=== PATIENT | male | born 1970 | race Caucasian/White ===

== ENCOUNTER 2021-08-28 06:48 | Outpatient (CLI) | payer OTHER, SELFPAY ==
--- NOTE | ~2021-08-28 | CT_ITS ---
EXAMINATION: CT abdomen pelvis wo/w con EXAM DATE: 08/28/2021 07:33 INDICATION: Gross hematuria. TECHNIQUE: Spiral CT of the abdomen and pelvis was performed without contrast. The patient was then injected with small bolus intravenous Omnipaque 350, followed by delay of approximately 10 minutes to allow collecting system to opacify. A post contrast scan abdomen and pelvis was performed during inj ection of remaining contrast. A total of 130 cc intravenous contrast was administered. The dose-rafiq th product (DLP) for this examination was 525.70 mGy-cm. The exposure was tailored according to ankit ent size (auto mA exposure control), and iterative reconstruction (ASIR) was used as additional dose reduction technique. There is no prior study for comparison. FINDINGS: There is no hydronephrosis or nephrolithiasis. The kidneys enhance symmetrically. There a re no suspicious renal lesions. The calyces and opacified portions of ureters are unremarkable, with out filling defects or focal suspicious strictures. Mild bladder wall trabeculation without thickeni ng. The prostate is unremarkable. The liver, spleen, adrenal glands and pancreas are unremarkable. Gallbladder is unremarkable. No bi liary obstruction. There is no retroperitoneal or pelvic lymphadenopathy. The appendix is normal. No small bowel dilation. There is a 3 cm duodenal diverticulum. There is ex pected amount of colonic stool. No free intraperitoneal gas. The heart is normal in size. There are no pericardial or pleural effusions. The lung bases are unremarkable. The bones are unremarkabl e. IMPRESSION: 1. No suspicious genitourinary findings. 2. Duodenal diverticulum. Reviewed, dictated and finalized at location B. ION MERCHANDISER
--- NOTE | ~2021-08-28 | XR_ITS ---
EXAMINATION: XR abdomen/kub 1V EXAM DATE: 08/28/2021 07:16 INDICATION: Gross hematuria. TECHNIQUE: Frontal projection(s) of the abdomen for interpretation. Correlation is made to CT urogram same date. FINDINGS: There is expected amount of colonic stool and gas. No small bowel dilation, nonobstructiv e bowel gas pattern. Calcifications in the pelvis are believed to be phleboliths. There is no orga nomegaly suspected. The bones are unremarkable. Lung bases unremarkable. There are no osseous abno rmalities identified. IMPRESSION: Unremarkable abdomen x-ray exam. Reviewed, dictated and finalized at location B. ON COATER MACHINE OPERATOR
== END 2021-08-28 06:49 | disposition home or self-care (01) ==
LOC: ANHIMG 06:52
PROVIDERS: PCP Urology; Visit Provider Urology
DX: R31.0 Gross hematuria (principal); K57.10 Diverticulosis of small intestine without perforation or abscess without bleeding
CPT/HCPCS: 74018; 74178; Q9967

== ENCOUNTER 2021-12-18 11:48 | Outpatient (CLI) | payer OTHER, SELFPAY ==
--- NOTE | 2021-12-18 12:44 | ECG_ITS ---
Measurements Intervals Gays Rate: 76 P: 75 NE: 151 QRS: 11 QRSD: 118 T: 43 QT: 376 QTc: 425 Interpretive Statements SINUS RHYTHM WITH SINUS ARRHYTHMIA INCOMPLETE RIGHT BUNDLE BRANCH BLOCK [90+ ms QRS DURATION, TERMINAL R IN V1/V2, 40+ ms S IN I/aVL/V4/V5/V6] BASELINE ARTIFACT BORDERLINE ECG NO PREVIOUS ECG AVAILABLE FOR COMPARISON Electronically Signed On 12-18-2021 13:32:22 SALES SPECIAL AGENT by Ernesto Calvert M.D.
[2021-12-18 15:42] LABS: Basophils Absolute Auto 0.1 K/mm3 (0.0-0.1); Basophils Percent Auto 1.2 % (0.2-1.2); Eosinophils Absolute Auto 0.3 K/mm3 (0-0.3); Eosinophils Percent Auto 5.4 % (0-4.4); Hematocrit 46.2 % (42.0-52.0); Hemoglobin 16.1 g/dL (14.0-18.0); Immature Granulocyte Absolute 0.01 K/mm3 (0.00-0.031); Immature Granulocyte Percent A 0.2 % (0-0.5); Lymphocytes Absolute Auto 1.78 K/mm3 (0.9-3.2); Lymphocytes Percent Auto 30.8 % (18.3-44.2); Mean Corpuscular HGB Conc 34.8 g/dl (32-36); Mean Corpuscular Hemoglobin 29.4 pg (26-34); Mean Corpuscular Volume 84.5 fl (80-100); Mean Platelet Volume 9.8 fl (7.4-10.4); Monocytes Absolute Auto 0.5 K/mm3 (0.1-0.6); Monocytes Percent Auto 8.3 % (2.6-8.5); Neutrophils Absolute Auto 3.1 K/mm3 (1.3-6.7); Neutrophils Percent Auto 54.1 % (45.5-73.1); Platelet Count Result 306 k/mm3 (150-375); Red Blood Count 5.47 M/mm3 (4.6-6.20); Red Cell Distribution Width 12.5 % (11.5-14.5); White Blood Count 5.8 K/mm3 (4.5-10.0)
[2021-12-18 15:47] LABS: INR 1.1; Prothrombin Time 13.7 Seconds (11.1-14.7)
[2021-12-18 15:48] LABS: Partial Thromboplastin Time 35.7 SECONDS (22.3-36.8)
[2021-12-18 15:49] LABS: Alanine Aminotransferase 14 U/L (4-50); Albumin Level 4.4 g/dL (3.5-5.1); Alkaline Phosphatase 38 U/L (38-126); Anion Gap 7 mmol/L (8-16); Aspartate Amino Transferase 29 U/L (17-59); Bilirubin,Total 0.7 mg/dL (0.2-1.3); Blood Urea Nitrogen 16 mg/dL (9-20); Calcium 8.5 mg/dL (8.4-10.2); Carbon Dioxide 31 mmol/L (22-30); Chloride 102 mmol/L (98-107); Estimated Glomerular Filt Rate > 60; Glucose 88 mg/dL (65-110); Potassium 3.6 mmol/L (3.4-5.0); Sodium 140 mmol/L (137-145)
== END 2021-12-18 11:49 | disposition home or self-care (01) ==
LOC: ANHSURGERY 11:53
PROVIDERS: PCP Family Medicine; Visit Provider Urology
DX: Z01.812 Encounter for preprocedural laboratory examination (principal); C61 Malignant neoplasm of prostate; I49.8 Other specified cardiac arrhythmias; I45.10 Unspecified right bundle-branch block
CPT/HCPCS: 36415; 80053; 85025; 85610; 85730; 86850; 86900; 86901; 87086; 93005

== ENCOUNTER 2021-12-31 00:18 | Day surgery (SDC) | payer OTHER, SELFPAY ==
--- NOTE | 2021-12-18 12:23 | PC.NURSE ---
Report to the Outpatient Waiting Room, entrance under the green pavilion located off [facility], at time 0600 on date __12/31/21 . OR Time: . - You and your visitor will be asked a series of questions to screen for COVID 19 for your protection. - A mask is required within the hospital. Preoperative COVID Testing Requirements: No COVID Test needed if: (proof is required; if not received patient will have Rapid Test prior to entry) - Patient has received COVID Vaccine at least 14 days prior to procedure date or - Patient has positive COVID test result within last 90 days of surgery date. COVID Test needed if above criteria is not met If not COVID vaccinated a COVID test must be conducted within 72 hours of surgery and patient is asked to isolate self from time of testing until procedure. You will go to the [employer] [facility] for your COVID testing. The [employer] [facility] site is located at the corner of [address] [facility]. You will only be called if COVID results are positive and your surgeon may reschedule your elective surgery date. Patients may have clear liquids (water, carbonated beverages, clear teas, apple juice) until 3 hours prior to surgery with a maximum of 20 ounces. - No food from midnight until time of surgery Take the following medications with a SIP of water the morning of surgery: ___NONE Medications to discontinue per physician ____NONE Date to take last dose Please no make-up, nail persian, hairspray, perfume, deodorant, or body powder the day of surgery. No jewelry (including any body piercings) or valuables the day of surgery, leave them at home. Please take a shower or bath the night before, or the morning of, surgery with an antibacterial soap. Wear comfortable, loose fitting clothing. Children are encouraged to wear pajamas. - Jewelry must be removed prior to entering the operating room. Rings and piercings that are not removed may be cut off. - The hospital will not accept responsibility for valuables. - Please leave all valuables, including medications, at home the day of surgery. If you are going home after surgery, a licensed p d driver must drive you home. - NO public transportation without another adult. - We recommend that an adult stay with you for 24 hours following discharge. - We also recommend that you do not drive, make important decision, drink alcoholic beverages, or take any drugs that were not prescribed by your health care provider for at least 24 hours after your discharge time. One visitor will be allowed to accompany the patient into the hospital. Patients visitor will be instructed to remain with patient at all times or leave the building. We will allow the visitor to come back to the postoperative area when patient is ready. Follow any additional instructions given to you from your surgeon. VERBAL AND WRITTEN instructions given to __PATIENT and asked if any additional questions and then verbalized understanding. Patient advised to call surgeon office or pre surgery nurse liaison [phone] if any additional questions.
[2021-12-18 12:43] VITALS: BP 144/75; PULSE 79; RESP 18; TEMP 37.1; O2SAT 100; BMI 19.7
--- NOTE | 2021-12-30 13:42 | WPDANESEPPF ---
Anes - Initial Pre Proc Eval Procedure: Operation Date: 12/31/21 07:30 Proposed Procedures p Robotic Assisted Laparoscopic Nerve Sparing Prostatectomy with Possible Pelvic Lymph Node Dissection - Jose J Meyer MD Date/Time: 12/30/21 13:42 Surgeon: Jose J Meyer MD Pre Op Diagnosis: prostate cancer Patient Data Age: 51 Gender: M Height: 1.75 m Weight: 60.5 kg Last Vital Signs Temp 98.8 F 12/18/21 12:43 Pulse 79 12/18/21 12:43 Resp 18 12/18/21 12:43 BP 144/75 H 12/18/21 12:43 Pulse Ox 100 12/18/21 12:43 Allergies Allergy/AdvReac Type Severity Reaction Status Date / Time iodine Allergy Unknown Rash Verified 12/31/21 07:02 Home Medications Medication Instructions Recorded Confirmed Type acetaminophen [Tylenol] 325 mg PO PRN PRN 12/18/21 12/18/21 History Patient hx anesthesia problems: post op nausea/vomiting Family hx anesthesia problems: none Results Review: All pre-operative results and documents have been reviewed as part of the pre-operative evaluation. [facility] Past Medical History Medical History (Updated 12/30/21 @ 13:42 by Tyler Bailey MD) Prostate cancer Social History Social History Smoking status: Never smoker Alcohol intake: current Drinks per week: 1 Living arrangements: alone Spiritual care concerns: No Anes - Eval Final PreProcedure Day of Procedure 12/30/21 13:42 Patient weight: normal Heart: regular rate and rhythm Lungs: clear to auscultation Airway: Mallampati scale class II Neurological: alert and oriented Last oral intake: >/= 8 hours ASA classification: II Emergent: no Anesthetic plan: proceed Anesthesia type and monitoring: general ETT and standard monitoring Results Review: All pre-operative results and documents have been reviewed as part of the pre-operative evaluation. Informed Consent: The patient's anesthetic plan and its attendant risks and benefits were discussed with the patient/family/POA. Questions were solicited and answers provided to the satisfaction of the patient/family/POA.
[2021-12-31] VITALS (9 sets, daily range): BP systolic 123–144; BP diastolic 54–81; PULSE 74–101; RESP 12–20; TEMP 36.2–37.1; O2SAT 95–100
--- NOTE | 2021-12-31 07:00 | WPDHPUPDATE1 ---
History and Physical Update Update Date/Time: 12/31/21 07:00 History and Physical has been reviewed, including an updated exam of the patient. There are NO changes in the patient's condition. Risks, benefits, and alternatives have been discussed and questions answered. Patient agrees to proceed with procedure. Proceed with robotic assist nerve sparing prostatectomy with possible pelvic lymph node dissection
[2021-12-31] MEDS: LACTATED RINGERS 1,000 ML 30 ML IV CONT ×2 (07:15→14:00)
[2021-12-31] MEDS: SCOPOLAMINE 1.5 MG PATCH TRANSDERM (07:25)
[2021-12-31] MEDS: ceFAZolin 2 GM/D5W 50 ML 2 GM/50 ML BAG IVPB (07:34)
[2021-12-31] MEDS: BUPIVACAINE HCL 0.5% PF 30 ML VIAL INFILTRATE (08:40)
--- NOTE | 2021-12-31 12:55 | W.PM.PROC2 ---
Procedure Note - Detailed Date of Procedure 12/31/21 Pre-op Diagnosis prostate cancer Post-op Diagnosis Same Procedure Performed Robotic assisted nerve-sparing prostatectomy with right pelvic lymph node dissection. Cut down for initial port placement by Dr. Miles Surgeon Jose J Meyer MD Anesthesia General Description of Procedure Patient was taken to the operative suite and correctly identified. Once anesthesia was obtained he was placed in low-lying dorsal lithotomy position and prepped and draped usual sterile fashion. Eighteen Sammarinese Steinberg was placed in the bladder and inflated with 15 cc of normal saline. All pressure points had been padded. A midline incision supraumbilically was then made and carried down to the rectus fascia. A Veress needle was inserted the abdomen was insufflated to 15 mmHg placement. Dung was extremely thin and I did not feel comfortable placing the camera through a trocar into his abdomen. At that point we decided to have General surgery come in and assist in a cutdown. This was accomplished by Dr. Miles who will dictate that portion of the procedure. The camera port was then placed in the abdomen was insufflated again to 15 mmHg pressure. Working ports were then placed in appropriate locations. Patient was placed in steep Trendelenburg and the robot was docked. A posterior approach was then taken. Seminal vesicles were dissected out in their entirety the vas were transected. Plane between the prostate and rectum was developed. Bladder was taken down standard fashion. Space of Retzius was developed bilaterally. Puboprostatic were transected. 0 Vicryl was placed as a dorsal venous complex suture and then secured to the pubic bone. Anterior bladder neck was then opened. The Steinberg catheter was exposed. Posterior bladder neck was then transected. The the tissue plane was then incised to expose the previously dissected seminal vesicles and vas. Pedicles were taken with clips. Bilateral nerve-sparing was performed. Prostate was lifted off the rectum. Dorsal venous complex was then transected. Urethra was also transected. Specimen was placed in Endo-Catch bag. A right pelvic lymph node dissection was then performed with the boundaries being the external iliac vein, obturator nerve, Newton ligament, bifurcation of the vessels. Clips were placed proximally and distally. Lymph node packet was also placed in an Endo-Catch bag. Surgicel was placed in the obturator fossa and over the neurovascular bundles. A Henri stitch was then performed. The anastomosis of the urethral stump to the bladder neck was performed using V lock suture in a running fashion. There was good a mucosa to mucosa approximation. Sixteen Sammarinese Steinberg was then placed inflated with 10 cc of sterile water. 120 cc of fluid was then injected into the catheter. There is no evidence of extravasation. Catheter was drained. Patient was undocked. Endo-Catch bag was then brought out through the midline incision. Rectus fascia was closed using 0 Vicryl running fashion. Subcuticular sutures were then placed. The incisions were anesthetized with Marcaine. Patient tolerated procedure well without any complications and was taken recovery room stable condition. Estimated Blood Loss 50 Drains Yes Packing No Pathology Yes Complications No immediate complications Condition Stable Disposition PACU
[2021-12-31] MEDS: ONDANSETRON INJ 4 MG/2 ML VIAL IV PUSH (13:43)
[2021-12-31] MEDS: fentaNYL CITRATE INJ (*CRX) 100 MCG/2 ML VIAL 25 MCG IV PUSH (13:47)
[2021-12-31] MEDS: diphenhydrAMINE HCl INJ 50 MG/ML VIAL 6.25 MG IV PUSH (14:05)
[2021-12-31] MEDS: LACTATED RINGERS 1,000 ML 125 ML IV CONT ×2 (15:48→23:12)
[2021-12-31] MEDS: KETOROLAC 30 MG/ML VIAL (*BKC) IV PUSH ×2 (17:13→23:11)
[2022-01-01] MEDS: MORPHINE SULFATE (*CRX) 2 MG/ML INJ 1 MG IV PUSH (02:23)
[2022-01-01 03:46] VITALS: BP 108/51; PULSE 70; RESP 18; TEMP 36.9; O2SAT 96
[2022-01-01 06:05] LABS: Hematocrit 38.3 % (42.0-52.0); Hemoglobin 12.8 g/dL (14.0-18.0)
[2022-01-01 06:21] LABS: Anion Gap 2 mmol/L (8-16); Blood Urea Nitrogen 17 mg/dL (9-20); Calcium 7.9 mg/dL (8.4-10.2); Carbon Dioxide 32 mmol/L (22-30); Chloride 103 mmol/L (98-107); Estimated CRCL calculation 58 ml/min; Estimated Glomerular Filt Rate > 60; Glucose 99 mg/dL (65-110); Potassium 4.1 mmol/L (3.4-5.0); Sodium 137 mmol/L (137-145)
[2022-01-01] MEDS: LACTATED RINGERS 1,000 ML 125 ML IV CONT (06:35)
[2022-01-01] MEDS: KETOROLAC 30 MG/ML VIAL (*BKC) IV PUSH ×2 (06:35→14:47)
--- NOTE | 2022-01-01 07:56 | WPDANESPN ---
Anes - Prog Note Post-Op Date/Time: 01/01/22 07:56 Cardiovascular status: normal Respiratory status: normal Airway patency: baseline Mental status: baseline Post-Op hydration status: normal Vital Signs: Last Vital Signs Temp 98.4 F 01/01/22 03:46 Pulse 70 01/01/22 03:46 Resp 18 01/01/22 03:46 BP 108/51 L 01/01/22 03:46 Pulse Ox 96 01/01/22 03:46 Pain Score (VAS): 10/21 I/O: Intake & Output 12/31/21 12/31/21 01/01/22 15:59 23:59 07:59 Intake Total 250 1150 1390 Output Total 85 320 2410 Balance 165 830 -1020 Laboratory Tests 01/01/22 05:28 01/01/22 05:28 01/01/22 01/01/22 05:28 05:28 Hgb 12.8 L D Hct 38.3 L Sodium 137 Potassium 4.1 Chloride 103 Carbon Dioxide 32 H Anion Gap 2 L BUN 17 Creatinine 1.10 Estim Creat Clear Calc 58 Estimated GFR > 60 Glucose 99 Calcium 7.9 L Post-procedural complaints: none Patient Feedback: Patient satisfied with anesthetic care.
[2022-01-01] MEDS: levoFLOXacin 500 MG TABLET PO (08:15)
[2022-01-01 14:57] VITALS: BP 128/53; PULSE 82; RESP 16; TEMP 36.9; O2SAT 100
--- NOTE | 2022-01-01 15:45 | WPDUROPN2 ---
Progress Note: A&P Assessment and Plan (1) Prostate cancer: Code(s): C61 - Malignant neoplasm of prostate Status: Acute Assessment and Plan: Remove KAROLYN drain and apply a dry dressing. Ok to discharge home with everett, please attach a leg bag and send a large bag home for nighttime. Subjective Subjective Date/Time Seen: 01/01/22 15:45 POD#1 Robotic Assisted Nerve Sparing Prostatectomy with retroperitoneal lymph node dissection and cut down for port placement by Dr. Miles. The patient is doing well today, his KAROLYN drain has little output this afternoon. He is tolerating pain and diet well. Review of Systems Cardiovascular: Cardiovascular: Denies chest pain Respiratory: Respiratory: Reports no additional respiratory complaints Gastrointestinal: Gastrointestinal: Reports abdominal pain (at incisional sites only) Genitourinary: Genitourinary: Denies hematuria and Denies flank pain Exam Resp: Effort & Inspection: normal respiratory effort Cardio: Rate: regular rate GI: GI Palp: Yes Soft to palpation and Yes Tenderness to palpation present (GI) (at incisions only, no drainage, edema or redness present) : General: Yes no CVA tenderness Urinary Catheter: Urinary Catheter: patent and draining and urine clear Extrem: General: no edema Objective Data Vital Signs Vital Signs: Vital Signs - 24 hr 12/31/21 19:25 01/01/22 03:46 01/01/22 14:57 Temperature 98.8 F 98.4 F 98.4 F Pulse Rate 74 70 82 Respiratory Rate 18 18 16 Blood Pressure 126/54 L 108/51 L 128/53 L Pulse Oximetry 98 96 100 Intake/Output Intake/Output: Intake & Output 12/29/21 12/30/21 12/31/21 01/01/22 23:59 23:59 23:59 23:59 Intake Total 1400 2550 Output Total 405 2410 Balance 995 140 Meds/Results Medications: Active Medications Generic Name Dose Route Start Last Admin Trade Name Freq PRN Reason Stop Dose Admin Hyoscyamine 0.125 mg 12/31/21 15:09 Hyoscyamine Sulfate 0.125 Mg Tablet SUBLINGUAL Q4H PRN Bladder Spasm Lactated Ringer's 1,000 mls @ 125 mls/hr 12/31/21 15:09 01/01/22 14:48 Lr - Lactated Ringers Iv IV CONT Infused .Q8H QUINTON Infusion Levofloxacin 500 mg 01/01/22 09:00 01/01/22 08:15 Levofloxacin 500 Mg Tablet PO 500 mg DAILY QUINTON Administration Morphine Sulfate 1 mg 12/31/21 15:09 01/01/22 02:23 Morphine Sulfate (*Crx) 2 Mg/Ml Inj IV PUSH 1 mg Q2H PRN Administration Pain Rated 7-10 Naloxone HCl 0.1 mg 12/31/21 15:09 Naloxone Hcl 0.4 Mg/Ml Vial IV PUSH Q2M PRN Opiate Reversal Labs Labs: Laboratory Results - last 24 hr 01/01/22 01/01/22 05:28 05:28 Hgb 12.8 L D Hct 38.3 L Sodium 137 Potassium 4.1 Chloride 103 Carbon Dioxide 32 H Anion Gap 2 L BUN 17 Creatinine 1.10 Estim Creat Clear Calc 58 Estimated GFR > 60 Glucose 99 Calcium 7.9 L
== END 2022-01-01 16:52 | disposition home or self-care (01) ==
LOC: ANHSURGERY 06:13 → ANH2MED 15:10
PROVIDERS: PCP Family Medicine; Visit Provider Urology
PROC: 0VT04ZZ Resection of Prostate, Percutaneous Endoscopic Approach (ICD-10-PCS; CPT 55867; principal; 2021-12-31 07:30)
DX: C61 Malignant neoplasm of prostate (principal)
CPT/HCPCS: 55866; 38571; S2900; 36415; 80048; 85014; 85018; 88305; 88307; 88309; A9270; J0690; J1100; J1170; J1200; J1885; J2250; J2270; J2405; J2704; J2710; J3010; J7030; J7120

== ENCOUNTER 2022-01-08 08:31 | Outpatient (CLI) | payer OTHER, SELFPAY ==
--- NOTE | ~2022-01-08 | XR_ITS ---
EXAMINATION: XR cystogram EXAM DATE: 01/08/2022 09:20 TECHNIQUE: Fluoroscopic guidance used during cystogram performed by Dr. Abbe Raymundo, radiologist, [facility] Steinberg catheter in place on patient arrival. An Omnipaque 350/saline solution was used and allowe d to infuse through the Steinberg catheter under gravity. Mainframe Software Developer image, fluoroscopic images and postevacua tion image were obtained. Total fluoroscopic time of 0.1 minutes. The DAP for this procedure was 2. 7 mGym2. A total of 21 images obtained for the exam. There is no prior study for comparison. FINDINGS: Mainframe Software Developer image is unremarkable. Patient tolerated approximately 200 milliliters of distention. There was no contrast extravasation, no bladder diverticula, no ureteral reflux or bladder mass amna ntified. Some phleboliths noted in pelvis. IMPRESSION: Normal cystogram. Reviewed, dictated and finalized at location B. IMPRESSION: Normal cystogram.
== END 2022-01-08 08:32 | disposition home or self-care (01) ==
LOC: ANHIMG 08:32
PROVIDERS: PCP Family Medicine; Visit Provider Urology
DX: C61 Malignant neoplasm of prostate (principal)
CPT/HCPCS: 51600; 74430; Q9967

== ENCOUNTER 2022-02-12 15:59 | Outpatient (CLI) | payer OTHER, SELFPAY ==
[2022-02-12 16:26] LABS: Cholesterol 200 mg/dL (0-200); HDL Direct 55 mg/dL; Triglycerides 134 mg/dL (<150)
[2022-02-12 16:37] LABS: LDL Cholesterol Direct 95 mg/dL
[2022-02-12 16:58] LABS: Prostate Specific Antigen < 0.1 ng/mL (< OR = 4.0)
== END 2022-02-12 16:00 | disposition home or self-care (01) ==
LOC: ANHLAB 16:01
PROVIDERS: PCP Family Medicine; Referring Provider Urology; Visit Provider Family Medicine
DX: C61 Malignant neoplasm of prostate (principal); E78.5 Hyperlipidemia, unspecified
CPT/HCPCS: 36415; 80061; 84153

== ENCOUNTER 2022-05-28 16:35 | Outpatient (CLI) | payer OTHER, SELFPAY ==
[2022-05-28 17:29] LABS: Prostate Specific Antigen < 0.1 ng/mL (< OR = 4.0)
== END 2022-05-28 16:36 | disposition home or self-care (01) ==
PROVIDERS: PCP Family Medicine; Visit Provider Urology
DX: C61 Malignant neoplasm of prostate (principal)
CPT/HCPCS: 36415; 84153; G0103

== ENCOUNTER 2022-10-27 15:01 | Outpatient (CLI) | payer OTHER, SELFPAY | END 2022-10-27 15:02 | disposition home or self-care (01) | LOC: ANHLAB 15:04 | PROVIDERS: PCP Urology; Visit Provider Urology | DX: C61 Malignant neoplasm of prostate (principal) | CPT/HCPCS: 36415; 84153; 85305 ==

== ENCOUNTER 2022-10-28 09:18 | Outpatient (CLI) | payer OTHER, SELFPAY ==
[2022-10-28 16:32] LABS: Prostate Specific Antigen < 0.1 ng/mL (< OR = 4.0)
== END 2022-10-28 09:19 ==
LOC: ANHGOSHLAB 11-06 09:19
PROVIDERS: PCP Urology; Visit Provider Urology
DX: Z85.46 Personal history of malignant neoplasm of prostate (principal)
CPT/HCPCS: 36415; 84153

== ENCOUNTER 2023-03-04 06:36 | Outpatient (CLI) | payer OTHER, SELFPAY ==
[2023-03-04 07:07] LABS: Appearance Urine Clear (Clear); Bilirubin Urine Negative (Negative); Blood Urine Negative (Negative); Color Urine Yellow (Yellow); Glucose Urine UA Negative (Negative); Ketones Urine Trace mg/dL (Negative); Leukocyte Esterase Ur Negative LEU/UL (NEGATIVE); Nitrate Urine Negative (Negative); Protein Urine Negative (Negative); Specific Grav Ur 1.029 (1.001-1.035); pH Urine 5.5 (5.0-9.0)
[2023-03-04 07:07] LABS: Hematocrit 47.5 % (42.0-52.0); Hemoglobin 16.1 g/dL (14.0-18.0); Mean Corpuscular HGB Conc 33.9 g/dl (32-36); Mean Corpuscular Hemoglobin 28.9 pg (26-34); Mean Corpuscular Volume 85.3 fl (80-100); Mean Platelet Volume 9.2 fl (7.4-10.4); Platelet Count Result 276 k/mm3 (150-375); Red Blood Count 5.57 M/mm3 (4.6-6.20); White Blood Count 6.8 K/mm3 (4.5-10.0)
[2023-03-04 07:12] LABS: Add Urine Microscopic? NO
[2023-03-04 07:17] LABS: Alanine Aminotransferase 32 U/L (6-50); Albumin Level 4.4 g/dL (3.5-5.1); Alkaline Phosphatase 34 U/L (38-126); Anion Gap 6 mmol/L (8-16); Aspartate Amino Transferase 43 U/L (17-59); Blood Urea Nitrogen 19 mg/dL (9-20); Calcium 8.6 mg/dL (8.4-10.2); Carbon Dioxide 33 mmol/L (22-30); Chloride 101 mmol/L (98-107); Cholesterol 215 mg/dL (0-200); Estimated Glomerular Filt Rate > 60; Glucose 86 mg/dL (65-110); HDL Direct 68 mg/dL; Sodium 140 mmol/L (137-145); Triglycerides 61 mg/dL (<150)
[2023-03-04 07:28] LABS: LDL Cholesterol Direct 113 mg/dL
== END 2023-03-04 06:37 | disposition home or self-care (01) ==
PROVIDERS: PCP Family Medicine; Referring Provider Urology; Visit Provider Family Medicine
DX: C61 Malignant neoplasm of prostate (principal)
CPT/HCPCS: 36415; 80053; 80061; 81003; 84443; 85027

== ENCOUNTER 2023-09-14 15:52 | Outpatient (CLI) | payer OTHER, SELFPAY ==
[2023-09-14 17:13] LABS: Prostate Specific Antigen < 0.1 ng/mL (< OR = 4.0)
== END 2023-09-14 15:53 | disposition home or self-care (01) ==
LOC: ANHLAB 15:54
PROVIDERS: PCP Family Medicine; Visit Provider Urology
DX: C61 Malignant neoplasm of prostate (principal)
CPT/HCPCS: 36415; 84153; G0103

== ENCOUNTER 2024-03-04 16:24 | Outpatient (CLI) | payer OTHER, SELFPAY ==
[2024-03-04 18:14] LABS: Prostate Specific Antigen < 0.1 ng/mL (< OR = 4.0)
== END 2024-03-04 16:25 | disposition home or self-care (01) ==
LOC: ANHLAB 16:26
PROVIDERS: PCP Family Medicine; Visit Provider Urology
DX: C61 Malignant neoplasm of prostate (principal)
CPT/HCPCS: 36415; 84153; G0103

== ENCOUNTER 2024-06-15 06:45 | Outpatient (CLI) | payer OTHER, SELFPAY ==
[2024-06-15 07:48] LABS: Hematocrit 45.4 % (42.0-52.0); Hemoglobin 15.4 g/dL (14.0-18.0); Mean Corpuscular HGB Conc 33.9 g/dl (32-36); Mean Corpuscular Hemoglobin 29.2 pg (26-34); Mean Platelet Volume 9.8 fl (7.4-10.4); Platelet Count Result 290 k/mm3 (150-375); Red Blood Count 5.28 M/mm3 (4.6-6.20); White Blood Count 7.6 K/mm3 (4.5-10.0)
[2024-06-15 07:57] LABS: Alanine Aminotransferase 18 U/L (6-50); Albumin Level 4.2 g/dL (3.5-5.1); Alkaline Phosphatase 39 U/L (38-126); Anion Gap 8 mmol/L (4-12); Aspartate Amino Transferase 31 U/L (17-59); Bilirubin,Total 0.8 mg/dL (0.2-1.3); Blood Urea Nitrogen 19 mg/dL (9-20); Calcium 8.6 mg/dL (8.4-10.2); Carbon Dioxide 30 mmol/L (22-30); Chloride 102 mmol/L (98-107); Cholesterol 195 mg/dL (0-200); Estimated Glomerular Filt Rate > 60; Glucose 85 mg/dL (65-110); HDL Direct 61 mg/dL; Potassium 3.9 mmol/L (3.4-5.0); Sodium 140 mmol/L (137-145); Triglycerides 63 mg/dL (<150); Uric Acid 5.2 mg/dL (3.5-8.5)
[2024-06-15 08:02] LABS: Rheumatoid Factor < 12.0 IU/ML (<12)
[2024-06-15 08:09] LABS: LDL Cholesterol Direct 105 mg/dL
[2024-06-17 15:19] LABS: Anti Cyclic Citrullinated Pept <16 UNITS
== END 2024-06-15 06:46 | disposition home or self-care (01) ==
LOC: ANHLAB 06:47
PROVIDERS: PCP Family Medicine; Visit Provider Family Medicine
DX: Z00.00 Encounter for general adult medical examination without abnormal findings (principal); M25.50 Pain in unspecified joint
CPT/HCPCS: 36415; 80053; 80061; 84443; 84550; 85027; 86200; 86430

== ENCOUNTER 2024-08-09 14:48 | Outpatient (CLI) | payer OTHER, SELFPAY ==
--- NOTE | ~2024-08-09 | XR_ITS ---
EXAMINATION: XR hand RT min 3V DATE: 08/09/2024 15:03 INDICATION: Puncture injury with persistent swelling at the right third metacarpophalangeal joint. TECHNIQUE: Posteroanterior, 2 oblique and lateral views of the right hand were obtained. COMPARISON: None. FINDINGS: Bone alignment is normal. No fracture. 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 There is prominent soft tissue swelling centered at the ulnar side of the third me tacarpophalangeal joint. No ostial lysis, cortical erosion or osseous reaction to suggest osteomyelit is. No soft tissue gas or radiopaque foreign bodies. IMPRESSION: 1. Soft tissue swelling at the dorsal/ulnar side of the third metacarpophalangeal joint. No radiopaqu e foreign body, soft tissue gas, osteomyelitis or abnormal joint space narrowing to suggest a septic arthritis. 2. 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 Reviewed, dictated and finalized at location A. IMPRESSION: 1. Soft tissue swelling at the dorsal/ulnar side of the third metacarpophalange al joint. No radiopaque foreign body, soft tissue gas, osteomyelitis or abnorma l joint space narrowing to suggest a septic arthritis. 2. Polyarticular osteoarthritis, moderate at the fifth distal interphalangeal j oint and otherwise mild with typical distribution.
== END 2024-08-09 14:49 | disposition home or self-care (01) ==
LOC: ANHIMG 14:52
PROVIDERS: PCP Family Medicine; Visit Provider Radiology Diagnostic Radiology
DX: M25.441 Effusion, right hand (principal); M19.041 Primary osteoarthritis, right hand
CPT/HCPCS: 73130

== ENCOUNTER 2024-09-12 15:12 | Outpatient (CLI) | payer OTHER, SELFPAY ==
[2024-09-12 16:12] LABS: Prostate Specific Antigen < 0.1 ng/mL (< OR = 4.0)
== END 2024-09-12 15:13 | disposition home or self-care (01) ==
LOC: ANHLAB 15:14
PROVIDERS: PCP Family Medicine; Visit Provider Urology
DX: C61 Malignant neoplasm of prostate (principal)
CPT/HCPCS: 36415; 84153

== ENCOUNTER 2025-02-03 15:01 | Outpatient (CLI) | payer OTHER, SELFPAY ==
--- OUTSIDE RECORDS SUMMARY | 2025-02-03 15:07 | XMS_ITS | Clinical Summary ---
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 Gender Identity Not on file Sexual Orientation Not on file Plan of Treatment Health Maintenance Due Date Last Done Comments Hepatitis C Virus (HCV) Screening 1970 TdaP Immunization 1969 Hepatitis B Immunization (1 of 3 - 19+ 3-dose series) 01/14/1988 Colonoscopy 2014 Colorectal Cancer Screening 2014 Cologuard 2019 Immunochemical Fecal Occult Blood 2019 Pneumococcal Immunization (5 0+ years) (1 of 1 - PCV) 2019 Zoster Immunization (1 of 2) 2019 PSA Discussion 01/14/2024 Influenza Immunization (#1) 2024 SARS-COV-2 Immunization ( season) 2024 Respiratory Syncytial Virus (RSV) Immunization (Adult) (1 - 1-dose 75+ series) 01/14/2044 Meningococcal Immunization (ACWY) Aged Out No longer eligible based on patient's age to complete this topic Pneumococcal Immunization Combined Aged Out No longer eligible based on patient's age to complete this topic Rotavirus Immunization Aged Out No lo nger eligible based on patient's age to complete this topic Insurance [employer] on file
--- OUTSIDE RECORDS SUMMARY | 2025-02-03 15:07 | XMS_ITS | Clinical Summary ---
Author Organization [facility] Address [address] [place] [id number] Care Team Providers Care Real Estate Manager Name Role Phone Gurvinder Ortiz MD Primary Care Provider [phone] Allergies No known active allergies Medications No known medications Immunizations Immunization Administration Dates Next Due Tdap (Boostrix) 07/10/2024 Social History Tobacco Use Types Packs/Day Years Used Date Smoking Tobacco: Never Smokeless Tobacco: Never Tobacco Cessation:Counseling Given: Not Answered Alcohol Use Standard Drinks/Week Comments Never 0 (1 standard drink = 0.6 oz pur e alcohol) Sex and Gender Information Value Date Recorded Sex Assigned at Not on file Legal Sex Male 9:35 AM CDT Gender Identity Not on file Sexual Orientation Not on file Last Filed Vital Signs Vital Sign Reading Time Taken Comments Blood Pressure 124/80 07/10/2024 9:53 AM CDT Pulse 90 07/10/2024 9:53 AM CDT Temperature 36.3 C (97.3 F) 07/10/2024 9:53 AM CDT Respiratory Rate 18 07/10/2024 9:53 AM CDT Oxygen Saturation 100% 07/10/2024 9:53 AM CDT Inhaled Oxygen Concentration - - Weight 62.6 kg (138 lb) 07/10/2024 9:53 AM CDT Height 175.3 cm (5' 9 ) 07/10/2024 9:53 AM CDT Body Mass Index 20.38 07/10/2024 9:53 AM CDT Plan of Treatment Health Maintenance Due Date Last Done Comments Colorectal Cancer Screening Colonoscopy (10 Years) 1969 Annual Physical 01/14/1972 Hepatitis C 1987 Hepatitis B Vaccines (1 of 3 - 19+ 3-dose series) 01/14/1988 Pneumococcal Vaccine: 50+ Years (1 of 1 - PCV) 2019 Zoster Vaccines (2 of 2) 01/11/2024 11/16/2023 COVID-19 Vaccine (6 - 2023- season) 2024 09/24/2023, 03/31/2022, 07/26/2021, Additional history exists DTaP, Tdap and Td Vaccines (2 - Td or Tdap) 07/10/2034 07/10/2024 Meningococcal B Vaccine Aged Out No l onger eligible based on patient's age to complete this topic Meningococcal Vaccine Aged Out No chong malou eligible based on patient's age to complete this topic RSV Immunizations Under 20 Months Aged Out No longer eligible based on patient's age to complete this topic Insurance [id number] Care Teams Real Estate Manager Relationship Specialty Start Date End Date Gurvinder Ortiz MD [address] [place] [address] PCP - General FAMILY PRACTICE 07/10/24
[2025-02-03 16:38] LABS: Prostate Specific Antigen < 0.1 ng/mL (< OR = 4.0)
== END 2025-02-03 15:02 | disposition home or self-care (01) ==
LOC: ANHLAB 15:03
PROVIDERS: PCP Family Medicine; Visit Provider Urology
DX: C61 Malignant neoplasm of prostate (principal)
CPT/HCPCS: 36415; 84153

== ENCOUNTER 2025-09-01 15:24 | Outpatient (CLI) | payer OTHER, SELFPAY ==
[2025-09-01 16:28] LABS: Prostate Specific Antigen < 0.1 ng/mL (< OR = 4.0)
== END 2025-09-01 15:25 | disposition home or self-care (01) ==
LOC: ANHLAB 15:27
PROVIDERS: PCP Family Medicine; Visit Provider Urology
DX: C61 Malignant neoplasm of prostate (principal)
CPT/HCPCS: 36415; 84153